=== PATIENT | female | born 1945 | race Caucasian/White ===

== ENCOUNTER 2016-09-11 05:55 | Inpatient (IN) | payer OTHER, MEDICARE ==
[2016-08-28 10:52] VITALS: BMI 31.2
[2016-09-11] MEDS ORDERED: TRANEXAMIC ACID 1000 MG/10 ML VIAL IVPUSH ONE (06:11)
[2016-09-11] MEDS ORDERED: ROPIVICAINE 0.2%/MORPH PF/KETOROLAC - 51ML DISP.SYRINGE IA ONE ×3 (06:11→10:02)
[2016-09-11] MEDS ORDERED: CEFAZOLIN 2 GM in DEXTROSE 5%-WATER - 50 ML IVPB ONE (06:11)
[2016-09-11] MEDS ORDERED: GABAPENTIN 300 MG CAPSULE (FP) ONE (06:41)
[2016-09-11] MEDS ORDERED: oxyCODONE HCL 10 MG SUSTAINED ACTING TABLET ONE (06:41)
[2016-09-11] MEDS ORDERED: CELECOXIB 200 MG CAPSULE ONE (06:41)
[2016-09-11] MEDS: CELECOXIB 200 MG CAPSULE PO ONE (06:45)
[2016-09-11] MEDS: GABAPENTIN 300 MG CAPSULE (FP) PO ONE (06:45)
[2016-09-11] MEDS: oxyCODONE HCL 10 MG SUSTAINED ACTING TABLET PO ONE (06:45)
[2016-09-11] MEDS ORDERED: MIDAZOLAM HCL 2 MG/2 ML SINGLE DOSE VIAL ONE ×2 (06:47→07:55)
[2016-09-11] MEDS ORDERED: SODIUM CHLORIDE 0.9% P/F 10 ML VIAL IJ ONE (06:47)
[2016-09-11] MEDS ORDERED: ROPIVACAINE HCL 0.5% 30ML VIAL ONE (06:47)
[2016-09-11] MEDS ORDERED: DEXAMETHASONE SOD PHOSPHATE/PF 10 MG/ML SDV ONE (06:47)
[2016-09-11] MEDS ORDERED: TRANEXAMIC ACID 1000 MG/10 ML VIAL ONE ×2 (07:25→07:56)
[2016-09-11] MEDS ORDERED: ceFAZolin SODIUM 1 GM VIAL ONE ×2 (07:25→07:56)
[2016-09-11] MEDS ORDERED: VANCOMYCIN 1,000 MG VIAL (RESTRICTED TO ID ONLY) ONE (07:25)
--- NOTE | 2016-09-11 07:30 | HP ---
Admitting History and Physical - Admission Chief Complaint: Right hip osteoarthritis x years History of Present Illness: 71 year old female presents in regard to her right hip. Longstanding osteoarthritis of her right hip. Patient complains of pain, difficulty ambulating and limited ROM. Patient has failed conservative treatment including PO medication, activity modification and exercise program. At this point, patient would like to proceed with a right total hip arthroplasty (MAKOplasty). History Source: Patient - Past Medical History Pulmonary: Yes: Asthma Musculoskeletal: Yes: Osteoarthritis - Past Surgical History Additional Past Surgical History: See written H&P. - Advance Directives Advance Directives: Yes: Health Care Proxy - Smoking History Smoking history: Never smoked Have you smoked in the past 12 months: No - Alcohol/Substance Use Hx Alcohol Use: Yes (RARELY) Home Medications - Allergies Allergies/Adverse Reactions: Allergies Allergy/AdvReac Type Severity Reaction Status Date / Time No Known Allergies Allergy Verified 09/11/16 06:51 - Home Medications Home Medications: Ambulatory Orders Albuterol Sulfate [Proventil HFA Inhaler -] 1 - 2 inh PO PRN PRN 03/22/15 L.acidoph,Paracasei, B.lactis [Probiotic] 1 each PO DAILY 03/22/15 Cholecalciferol (Vitamin D3) [Vitamin D3] 1,000 unit PO DAILY capsule 05/21/15 Sheila Root 550 mg PO DAILY capsule 05/19/16 Vitamin B Complex 1 each PO DAILY capsule 05/19/16 Acetaminophen [Tylenol .Extra-Strength -] 1 tab PO PRN PRN 08/28/16 Cyanocobalamin Vit B-12 Inj. [Vitamin B12 Injection -] 1 dose IM MONTHLY Cyclobenzaprine HCl [Flexeril 10 mg] 1 tab PO PRN PRN 08/28/16 Ibuprofen [Motrin -] 600 mg PO PRN PRN 08/28/16 Oxycodone HCl/Acetaminophen [Percocet 10-325 mg Tablet] 0.5 each PO TID PRN 05/16 Salmeterol/Fluticasone [Advair 250Mcg/50Mcg -] 2 puff PO BID PRN 08/28/16 Carbamazepine [Tegretol] 200 mg PO BID tablet 08/31/16 Cyanocobalamin (Vitamin B-12) [Cyanocobalamin Injection] 1,000 mcg IJ MONTHLY # 1 vial 08/31/16 Guaifenesin [Mucinex] 600 mg PO BID 09/11/16 Review of Systems - Review of Systems Musculoskeletal: reports: Decreased ROM (Right hip), Joint Pain (Right hip) Physical Examination Vital Signs: Vital Signs Temperature 98 F 09/11/16 06:59 Pulse Rate 83 09/11/16 06:59 Respiratory Rate 16 09/11/16 06:59 Blood Pressure 161/80 09/11/16 06:59 O2 Sat by Pulse Oximetry (%) Constitutional: Yes: Well Nourished, No Distress Eyes: Yes: Conjunctiva Clear HENT: Yes: Atraumatic, Normocephalic Neck: Yes: Supple Cardiovascular: Yes: Regular Rate and Rhythm Respiratory: Yes: Regular Gastrointestinal: Yes: Soft ...Rectal Exam: Yes: Deferred Musculoskeletal: Yes: Joint Stiffness (Right hip) Assessment/Plan 71 year old female presenting in regard to her right hip. Patient continues to have pain and limited mobility. Patient has failed all conservative treatment. Proceed with a right total hip arthroplasty (MAKOplasty).
[2016-09-11] MEDS ORDERED: SUCCINYLCHOLINE CHLORIDE 200 MG/10 ML VIAL ONE (07:55)
[2016-09-11] MEDS ORDERED: PROPOFOL 20 ML ONE ×4 (07:55→09:10)
[2016-09-11] MEDS ORDERED: ONDANSETRON 4 MG/2 ML VIAL ONE (11:04)
[2016-09-11] MEDS ORDERED: KETOROLAC TROMETHAMINE 30 MG/1 ML VIAL ONE (11:20)
[2016-09-11] MEDS ORDERED: MAGNESIUM HYDROX 2400MG/30ML ORAL SUSPENSION 30 ML CUP PO PRN (11:20)
[2016-09-11] MEDS ORDERED: ACETAMINOPHEN INJECTION 100 ML IVPB ONE (11:20)
[2016-09-11] MEDS ORDERED: ONDANSETRON 4 MG/2 ML VIAL IVPB PRN (11:20)
[2016-09-11] MEDS ORDERED: MAG HYDROX/AL HYDROX/SIMETH 30 ML UNIT-DOSE CUP PO PRN (11:20)
[2016-09-11] MEDS ORDERED: traMADol HCL 50 MG TABLET ONE (11:21)
[2016-09-11] MEDS: traMADol HCL 50 MG TABLET PO SCH ×3 (11:22→23:30)
[2016-09-11] MEDS: KETOROLAC TROMETHAMINE 30 MG/1 ML VIAL IVPUSH SCH ×2 (11:22→15:30)
[2016-09-11] MEDS ORDERED: [UNRECOGNIZED DRUG - OTHER] PO PRN (11:23)
[2016-09-11] MEDS: ACETAMINOPHEN 1000 MG/100 ML VIAL (NON FORMULARY) IVPB ONE (11:23)
[2016-09-11] MEDS ORDERED: CYCLOBENZAPRINE HCL 10 MG TABLET (FP) PO PRN (11:23)
[2016-09-11] MEDS ORDERED: ALBUTEROL SO4 6.7 GM HFA INHALER IH PRN (11:23)
[2016-09-11] MEDS ORDERED: FLUTICASONE PO PRN (11:23)
[2016-09-11] MEDS ORDERED: SALMETEROL PO PRN (11:23)
[2016-09-11] MEDS ORDERED: LACTATED RINGERS SOLUTION 1,000 ML IV SCH (11:30)
[2016-09-11] MEDS ORDERED: oxyCODONE HCL 5 MG TABLET PO PRN (13:16)
[2016-09-11] MEDS ORDERED: PANTOPRAZOLE 40 MG TABLET (FP) PO ONE (14:00)
[2016-09-11] MEDS: oxyCODONE HCL 5 MG TABLET PO PRN ×2 (14:30→23:00)
--- NOTE | 2016-09-11 16:00 | OP ---
Operative Note - Note: Operative Date: 09/11/16 Pre-Operative Diagnosis: right hip OA Operation: right BERTA / MAKOplasty Post-Operative Diagnosis: Same as Pre-op Surgeon: Jalen Alberts Biomedical Equipment Tech: Bria Beltran Anesthesia: Spinal Estimated Blood Loss (mls): 200 Operative Report Dictated: Yes
[2016-09-11] MEDS: CEFAZOLIN 2 GM/D5W 50 ML IVPB SCH (18:00)
[2016-09-11] MEDS: ACETAMINOPHEN 325 MG TABLET (FP) PO SCH (18:00)
[2016-09-11] MEDS ORDERED: PT OWN MED DRAWER 7, Y5N ONE ×2 (21:03→21:10)
[2016-09-11] MEDS: ASCORBIC ACID 500 MG TABLET (FP) PO SCH (21:10)
[2016-09-11] MEDS: carBAMazepine 200 MG TABLET PO SCH (21:10)
[2016-09-11] MEDS: PANTOPRAZOLE 40 MG TABLET (FP) PO SCH (21:10)
[2016-09-11] MEDS: SENNOSIDES/DOCUSATE COMBO (SENNA PLUS) TABLET (UD) PO SCH (21:11)
[2016-09-11] MEDS: GABAPENTIN 300 MG CAPSULE (FP) PO SCH (21:11)
[2016-09-11] MEDS: oxyCODONE HCL 10 MG SUSTAINED ACTING TABLET PO SCH (21:11)
[2016-09-11] MEDS: BUDESONIDE 0.5 MG/2 ML INH SUSP VIAL NEB SCH (22:01)
[2016-09-12] MEDS: CEFAZOLIN 2 GM/D5W 50 ML IVPB SCH (02:00)
[2016-09-12] MEDS: traMADol HCL 50 MG TABLET PO SCH ×5 (04:59→23:46)
[2016-09-12] MEDS: BUDESONIDE/FORMETEROL FUMARATE 80/4.5 mcg INHALER IH SCH ×3 (04:59→21:48)
[2016-09-12] MEDS: KETOROLAC TROMETHAMINE 30 MG/1 ML VIAL IVPUSH SCH ×2 (05:00→05:01)
[2016-09-12] MEDS: oxyCODONE HCL 5 MG TABLET PO PRN ×3 (06:47→21:49)
[2016-09-12] MEDS: ACETAMINOPHEN 325 MG TABLET (FP) PO SCH ×5 (06:48→23:43)
[2016-09-12] MEDS: MONTELUKAST NA 10 MG TABLET PO SCH (07:00)
[2016-09-12] MEDS: ASPIRIN 325 MG TABLET PO SCH (08:00)
[2016-09-12 08:50] LABS: MCHC 34.2 g/dl (32.0-36.0); MEAN CELL VOLUME 93.8 fl (80-96); MEAN PLT VOLUME 8.9 fl (7.5-11.1); PLATELET COUNT 264 K/MM3 (134-434); RDW 12.9 % (11.6-15.6); WHITE BLOOD COUNT 8.9 K/mm3 (4.0-10.8)
[2016-09-12 08:55] LABS: ANION GAP 7 (8-16); CO2 26 mmol/L (22-28); CREATININE 0.7 mg/dl (0.6-1.3); GLUCOSE,RANDOM 159 mg/dl (74-106)
[2016-09-12 09:13] LABS: COCKROFT - GAULT NT
[2016-09-12] MEDS ORDERED: SODIUM CHLORIDE 500 ML IV STA (09:13)
[2016-09-12] MEDS: oxyCODONE HCL 10 MG SUSTAINED ACTING TABLET PO SCH ×2 (10:00→21:45)
[2016-09-12] MEDS: THEOPHYLLINE ANHYDROUS 200 MG CAP.ER.24H PO SCH (10:00)
[2016-09-12] MEDS: ASCORBIC ACID 500 MG TABLET (FP) PO SCH ×2 (10:00→21:46)
[2016-09-12] MEDS ORDERED: PANTOPRAZOLE 40 MG TABLET (FP) PO SCH (10:00)
[2016-09-12] MEDS: carBAMazepine 200 MG TABLET PO SCH ×2 (10:00→21:47)
[2016-09-12] MEDS: SENNOSIDES/DOCUSATE COMBO (SENNA PLUS) TABLET (UD) PO SCH ×2 (10:00→21:45)
[2016-09-12] MEDS: GABAPENTIN 300 MG CAPSULE (FP) PO SCH ×2 (10:00→21:44)
[2016-09-12] MEDS: CELECOXIB 200 MG CAPSULE PO SCH (10:00)
[2016-09-12] MEDS: MULTIVITAMINS (DAILY MVI) TABLET (FP) PO SCH (10:00)
--- NOTE | 2016-09-12 10:08 | RAPID ---
Physical Examination Vital Signs: Vital Signs Temperature 98.6 F 09/12/16 06:00 Pulse Rate 85 09/12/16 06:00 Respiratory Rate 19 09/12/16 06:00 Blood Pressure 126/58 09/12/16 06:00 O2 Sat by Pulse Oximetry (%) 96 09/12/16 06:19 Findings/Remarks: called to bedside for Rapid Response pt is a 71 y/o female with a past medical history of asthma, hiatal hernia, osteoarthritis. pt is s/p right THR (serena) pod #1 (Aristeo). Constitutional: Yes: Well Nourished, Diaphoresis, Pallor Eyes: Yes: WNL, Conjunctiva Clear, EOM Intact HENT: Yes: WNL, Atraumatic, Normocephalic Neck: Yes: WNL, Supple, Trachea Midline Cardiovascular: Yes: WNL, Regular Rate and Rhythm, S1, S2 Respiratory: Yes: WNL, Regular, CTA Bilaterally Gastrointestinal: Yes: WNL, Normal Bowel Sounds, Soft ...Rectal Exam: Yes: Deferred Renal/: Yes: WNL Musculoskeletal: Yes: Other (right hip dressing noted to lateral hip, CDI, + 3 pedal pulse, less than 3 second capillary refill.) Extremities: Yes: WNL Edema: No Peripheral Pulses WNL: Yes Peripheral Pulses: Left Radial: 4+, Right Radial: 4+, Left Doralis Pedis: 3+, Right Dorsalis Pedis: 3+, Left Femoral: 3+, Right Femoral: 3+ Integumentary: Yes: WNL Wound/Incision: Yes: Dressing Dry and Intact Neurological: Yes: WNL, Alert, Oriented ...Motor Strength: WNL Psychiatric: Yes: WNL, Alert, Oriented Labs: CBC, BMP 09/12/16 07:39 09/12/16 07:39 Rapid Response - Rapid Response Assessment: Rapid Response called by primary RN (Torey) patient was ambulating independently in the hallway with stretcher and RN at her side, patient became diaphoretic and loss consciousness for aproximately 30 seconds. No seizure like activity noted, no incontinence noted. Blood pressure was 53/40 with hr 47, Normal saline bolus initiated 500ml, fingerstick 108, patient regained consciousness, alert, awake, oriented x 3. repeat blood pressure 80/52, pt moved to rm 14, placed on cardiac monitoring, NSR, normal axis, no ectopy noted. repeat blood pressure 108/62. Outcome: brief period of loss of consciousness, regained consciousness with no seizure like activity, pt became normotensive after IV NS bolus Recommendations/Interventions: continue IVF d5NS @125ml/hr x 1 Liter recommend to hold oxycodone dose caution with narcotic pain medication. Primary Physician Notified: Jalen Alberts Time PMD Notified: 09:40 Plan: - close monitioring vital signs q4h - continue IV d5ns @125ml/hr x 1 liter - hold oxycodone dose tonight - caution with narcotic pain medication. Critical Care Total Critical Care Time (in minutes): 45 Critical Care Statement: The care of this patient involved high complexity decision making to prevent further life threatening deterioration of the patient 's condition and/or to evalute & treat vital organ system(s) failure or risk of failure.
[2016-09-12] MEDS: BUDESONIDE 0.5 MG/2 ML INH SUSP VIAL NEB SCH ×2 (10:30→21:46)
[2016-09-12] MEDS ORDERED: DEXTROSE 5%-NORMAL SALINE 1,000 ML IV SCH (10:45)
[2016-09-12] MEDS ORDERED: PT OWN MED DRAWER 7, Y5N ONE ×3 (10:55→22:28)
--- NOTE | 2016-09-12 11:42 | PN ---
Progress Note, Physician Chief Complaint: s/o right total hip TIESHA under spinal anesthesia History of Present Illness: single shot preipheral nerve block for post op pain control - Current Medication List Current Medications: Active Medications Acetaminophen (Tylenol -) 650 mg PO Q6H [facility] Stop: 09/14/16 17:59 Last Admin: 09/12/16 06:48 Dose: 650 mg Al Hydroxide/Mg Hydroxide (Mylanta Oral Suspension -) 30 ml PO Q4H PRN PRN Reason: DYSPEPSIA Albuterol Sulfate (Ventolin Hfa Inhaler -) 2 puff IH Q6H PRN PRN Reason: ASTHMA Ascorbic Acid (Vitamin C -) 500 mg PO BID [facility] Last Admin: 09/12/16 10:00 Dose: 500 mg Aspirin (Asa -) 325 mg PO DAILY@0800 [facility] Last Admin: 09/12/16 08:00 Dose: 325 mg Budesonide (Pulmicort 0.5 Mg Nebulizer -) 0.5 amp NEB BID [facility] Last Admin: 09/11/16 22:01 Dose: 0.5 amp Budesonide/Formoterol Fumarate (Symbicort 80/4.5mcg -) 2 puff IH BID [facility] Last Admin: 09/12/16 10:00 Dose: 2 inhaler Carbamazepine (Tegretol -) 200 mg PO BID [facility] Last Admin: 09/12/16 10:00 Dose: 200 mg Celecoxib (Celebrex -) 200 mg PO DAILY [facility] Last Admin: 09/12/16 10:00 Dose: 200 mg Cyclobenzaprine HCl (Flexeril -) 10 mg PO Q8H PRN PRN Reason: MUSCLE SPASMS Last Admin: 09/12/16 05:45 Dose: 10 mg Fentanyl (Sublimaze Injection -) 50 mcg IVPUSH [id number] PRN PRN Reason: PAIN Stop: 09/14/16 13:17 Gabapentin (Neurontin -) 300 mg PO BID [facility] Stop: 09/14/16 21:59 Last Admin: 09/12/16 10:00 Dose: 300 mg Dextrose/Sodium Chloride (D5-Ns -) 1,000 mls @ 125 mls/hr IV ASDIR [facility] Stop: 09/12/16 18:44 Magnesium Hydroxide (Milk Of Magnesia -) 30 ml PO PRN PRN PRN Reason: CONSTIPATION Montelukast Sodium (Singulair -) 10 mg PO AM [facility] Last Admin: 09/12/16 07:00 Dose: 10 mg Multivitamins/Minerals/Vitamin C (Tab-A-Vit -) 1 tab PO DAILY [facility] Last Admin: 09/12/16 10:00 Dose: 1 tab Ondansetron HCl (Zofran Injection) 4 mg IVPB Q6H PRN PRN Reason: NAUSEA Oxycodone HCl (Oxycontin -) 10 mg PO BID [facility] Stop: 09/14/16 13:16 Last Admin: 09/12/16 10:00 Dose: 10 mg Oxycodone HCl (Roxicodone -) 5 mg PO Q3H PRN PRN Reason: PAIN LEVEL 1-5 Oxycodone HCl (Roxicodone -) 10 mg PO Q3H PRN PRN Reason: PAIN LEVEL 6-10 Last Admin: 09/12/16 06:47 Dose: 10 mg Pantoprazole Sodium (Protonix -) 40 mg PO HS [facility] Last Admin: 09/11/16 21:10 Dose: 40 mg Senna/Docusate Sodium (Pericolace -) 2 tablet PO BID [facility] Last Admin: 09/12/16 10:00 Dose: 2 tablet Theophylline (Anastacio-24) 600 mg PO DAILY [facility] Last Admin: 09/12/16 10:00 Dose: 600 mg Tramadol HCl (Ultram -) 50 mg PO Q6H [facility] Last Admin: 09/12/16 04:59 Dose: 50 mg - Objective Vital Signs: Vital Signs Temperature 98.6 F 09/12/16 06:00 Pulse Rate 85 09/12/16 06:00 Respiratory Rate 19 09/12/16 09:00 Blood Pressure 126/58 09/12/16 06:00 O2 Sat by Pulse Oximetry (%) 96 09/12/16 09:00 Constitutional: Yes: Well Nourished Cardiovascular: Yes: WNL Respiratory: Yes: WNL Gastrointestinal: Yes: WNL Labs: CBC, BMP 09/12/16 07:39 Assessment/Plan Patient had a vagal episode this morning, rapid response called, she now feels fine, says she wants to take fewer pain medication. Otherwise, no anethetic complications. dept of anesthesia will sign off care at this time
[2016-09-12 11:56] LABS: ALK PHOS 85 U/L (32-92); ANION GAP 7 (8-16); BILIRUBIN,TOTAL 0.1 mg/dl (0.2-1.0); CALCIUM 8.7 mg/dl (8.4-10.2); CO2 25 mmol/L (22-28); COCKROFT - GAULT NT; CREATININE 0.6 mg/dl (0.6-1.3); GLUCOSE,RANDOM 136 mg/dl (74-106); MAGNESIUM 1.4 mg/dL (1.8-2.4); PHOSPHOROUS 3.2 mg/dl (2.5-4.6); SGOT/AST 34 U/L (10-42); SGPT/ALT 14 U/L (10-40); TOT PROT 5.1 g/dl (6.4-8.3)
[2016-09-12] MEDS ORDERED: MAGNESIUM SULFATE 2 GM in SODIUM CHLORIDE 100 ML IVPB ONE (12:14)
[2016-09-12] MEDS ORDERED: MAGNESIUM SULF 50% (8.12 MEQ/2 ML-1 GM VIAL) IVPB ONE (12:30)
[2016-09-12] MEDS ORDERED: MAGNESIUM SULF 50% (8.12 MEQ/2 ML-1 GM VIAL) ONE (15:08)
--- NOTE | 2016-09-12 17:16 | EKG ---
Test Reason : Blood Pressure : / mmHG Vent. Rate : 077 BPM Atrial Rate : 077 BPM P-R Int : 156 ms QRS Dur : 090 ms QT Int : 394 ms P-R-T Axes : 051 009 022 degrees QTc Int : 445 ms SINUS RHYTHM WITH MARKED SINUS ARRHYTHMIA INCOMPLETE RIGHT BUNDLE BRANCH BLOCK WHEN COMPARED WITH ECG OF 28-AUG-2016 10:41, NO SIGNIFICANT CHANGE WAS FOUND Confirmed by NAWAF CALI MD ([id number]) on 09/12/2016 5:15:54 PM Referred By: Jalen Alberts Confirmed By:NAWAF CALI MD
--- NOTE | 2016-09-12 20:10 | PN ---
Progress Note (short form) - Note Progress Note: Pt seen and examined. Events noted. Feels better. AVSS Selected Entries 09/12/16 14:09 Temperature 97.5 F L Pulse Rate 89 Respiratory 16 Rate Blood Pressure 135/61 O2 Sat by Pulse 95 Oximetry (%) Laboratory Tests 09/12/16 09/12/16 07:39 07:39 WBC 8.9 D Hgb 11.3 D Hct 33.1 D Plt Count 264 D Sodium 136 Potassium 5.0 Chloride 103 Carbon Dioxide 26 Anion Gap 7 L BUN 19 H D Creatinine 0.7 D Random Glucose 159 H Calcium 9.0 Gen: NAD RLE: c/d/i, NVID A/P 71yo female POD#1 s/p R BERTA 1. PT/OOB - WBAT RLE 2. D/C home tomorrow
[2016-09-12] MEDS: PANTOPRAZOLE 40 MG TABLET (FP) PO SCH (21:45)
[2016-09-13] MEDS: oxyCODONE HCL 5 MG TABLET PO PRN ×2 (01:53→08:51)
[2016-09-13] MEDS: traMADol HCL 50 MG TABLET PO SCH ×2 (05:49→11:49)
[2016-09-13] MEDS: ACETAMINOPHEN 325 MG TABLET (FP) PO SCH ×2 (05:50→11:48)
[2016-09-13 06:27] VITALS: BP 126/63; PULSE 87; TEMP 98.8
[2016-09-13] MEDS: ASPIRIN 325 MG TABLET PO SCH (08:12)
[2016-09-13] MEDS: MONTELUKAST NA 10 MG TABLET PO SCH (08:13)
[2016-09-13] MEDS: CELECOXIB 200 MG CAPSULE PO ONE (08:15)
[2016-09-13] MEDS: oxyCODONE HCL 10 MG SUSTAINED ACTING TABLET PO ONE (08:15)
[2016-09-13] MEDS: GABAPENTIN 300 MG CAPSULE (FP) PO ONE (08:15)
[2016-09-13] MEDS: ACETAMINOPHEN 1000 MG/100 ML VIAL (NON FORMULARY) IVPB ONE (08:15)
[2016-09-13] MEDS: KETOROLAC TROMETHAMINE 30 MG/1 ML VIAL IVPUSH SCH (08:16)
[2016-09-13 08:30] LABS: ALBUMIN 2.8 g/dl (3.5-5.0); ALK PHOS 81 U/L (32-92); ANION GAP 8 (8-16); BILIRUBIN,TOTAL 0.4 mg/dl (0.2-1.0); CALCIUM 8.6 mg/dl (8.4-10.2); CO2 25 mmol/L (22-28); CREATININE 0.5 mg/dl (0.6-1.3); GLUCOSE,RANDOM 139 mg/dl (74-106); SGOT/AST 29 U/L (10-42); SGPT/ALT 12 U/L (10-40)
[2016-09-13 08:34] LABS: MCH 31.9 pg (25.7-33.7); MEAN CELL VOLUME 93.8 fl (80-96); MEAN PLT VOLUME 8.9 fl (7.5-11.1); PLATELET COUNT 251 K/MM3 (134-434); RDW 12.7 % (11.6-15.6); WHITE BLOOD COUNT 9.5 K/mm3 (4.0-10.8)
[2016-09-13] MEDS ORDERED: PT OWN MED DRAWER 7, Y5N ONE (09:06)
--- NOTE | 2016-09-13 09:07 | DS ---
Physical Examination Vital Signs: Vital Signs Temperature 98.8 F 09/13/16 06:11 Pulse Rate 87 09/13/16 06:11 Respiratory Rate 18 09/13/16 06:11 Blood Pressure 126/63 09/13/16 06:11 O2 Sat by Pulse Oximetry (%) 93 L 09/13/16 06:11 Labs: CBC, BMP 09/13/16 07:32 09/13/16 07:32 Discharge Summary Reason For Visit: RIGHT HIP OSTEOARTHRITIS Current Active Problems Osteoarthritis of right hip (Acute) Procedures: Principal: right hip replacement Hospital Course: Admitted for elective surgery. Procedure performed without complications. Pt received postoperative antibiotic prophylaxis and DVT ppx. Ambulated with physical therapy. Stable for discharge home with outpatient followup. Condition: Stable - Instructions Diet, Activity, Other Instructions: Dr Alberts - Hip Replacement Instructions Keep the Aquacel dressing on until removed by Dr. Alberts in 10-14 days - it is antibacterial and waterproof and you can shower with it on. Call the office for a follow-up appointment with Dr. Alberts in 10-14 days. Take one Aspirin 325mg daily for 6 weeks to prevent blood clots in your legs. Take Omeprazole daily for 6 weeks to protect against heartburn and ulcers. Take Celebrex 200mg once daily for 30 days to reduce swelling and inflammation. Take a stool softener daily to prevent constipation. Take a multivitamin and vitamin C supplement daily to aid wound healing. For pain: *Mild pain (1-3/10): Take 1 Tramadol tablet every 4 hours as needed. Moderate pain (4-6/10): Take 1 Tramadol tablet and 1 Percocet tablet every 4 hours as needed. Severe pain (7-10/10): Take 1 Tramadol tablet and 2 Percocet tablets every 4 hours as needed. Activity: You can put as much weight on the operative leg as you want. For the first 6 weeks, all you need to do is walk around the house, go up/down stairs, and sit down/get up. After 6 weeks when everything is healed (and bone has grown into the implant) you will be sent for more intensive outpatient physical therapy. Always use a walker or cane for balance and to prevent falls. Disposition: VNS/HOME HEALTH CARE - Home Medications Comprehensive Discharge Medication List: Ambulatory Orders Albuterol Sulfate [Proventil HFA Inhaler -] 1 - 2 inh PO PRN PRN 03/22/15 L.acidoph,Paracasei, B.lactis [Probiotic] 1 each PO DAILY 03/22/15 Cholecalciferol (Vitamin D3) [Vitamin D3] 1,000 unit PO DAILY capsule 05/21/15 Sheila Root 550 mg PO DAILY capsule 05/19/16 Vitamin B Complex 1 each PO DAILY capsule 05/19/16 Cyanocobalamin Vit B-12 Inj. [Vitamin B12 Injection -] 1 dose IM MONTHLY Cyclobenzaprine HCl [Flexeril 10 mg] 1 tab PO PRN PRN 08/28/16 Salmeterol/Fluticasone [Advair 250Mcg/50Mcg -] 2 puff PO BID PRN 08/28/16 Carbamazepine [Tegretol] 200 mg PO BID tablet 08/31/16 Cyanocobalamin (Vitamin B-12) [Cyanocobalamin Injection] 1,000 mcg IJ MONTHLY # 1 vial 08/31/16 Guaifenesin [Mucinex] 600 mg PO BID 09/11/16 Ascorbic Acid [Vitamin C -] 500 mg PO BID tablet 09/13/16 Aspirin [ASA -] 325 mg PO DAILY@0800 tablet 09/13/16 Celecoxib [CeleBREX -] 200 mg PO DAILY #30 tab 09/13/16 Multivitamins [Multivit ([facility] Formulary)] 1 tab PO DAILY tab 09/13/16 Nystatin Oral Suspension - [Nystatin Oral Susp 903105 Units/5 ML -] 500,000 units PO Q6HPO #28 dose 09/13/16 Oxycodone HCl/Acetaminophen [Percocet 5-325 mg Tablet] 1 tab PO Q4H PRN #60 tablet MDD 8 09/13/16 Sennosides/Docusate Sodium [Pericolace -] 2 tablet PO BID tablet 09/13/16 Tramadol HCl [Ultram -] 50 mg PO Q4H PRN #90 tablet MDD 6 09/13/16
[2016-09-13] MEDS: CELECOXIB 200 MG CAPSULE PO SCH (09:09)
[2016-09-13] MEDS: MULTIVITAMINS (DAILY MVI) TABLET (FP) PO SCH (09:09)
[2016-09-13] MEDS: carBAMazepine 200 MG TABLET PO SCH (09:10)
[2016-09-13] MEDS: THEOPHYLLINE ANHYDROUS 200 MG CAP.ER.24H PO SCH (09:10)
[2016-09-13] MEDS: GABAPENTIN 300 MG CAPSULE (FP) PO SCH (09:10)
[2016-09-13] MEDS: ASCORBIC ACID 500 MG TABLET (FP) PO SCH (09:10)
[2016-09-13] MEDS: oxyCODONE HCL 10 MG SUSTAINED ACTING TABLET PO SCH (09:11)
[2016-09-13] MEDS: SENNOSIDES/DOCUSATE COMBO (SENNA PLUS) TABLET (UD) PO SCH (09:11)
[2016-09-13] MEDS: BUDESONIDE 0.5 MG/2 ML INH SUSP VIAL NEB SCH (09:11)
[2016-09-13] MEDS: BUDESONIDE/FORMETEROL FUMARATE 80/4.5 mcg INHALER IH SCH (09:12)
[2016-09-13] MEDS ORDERED: NYSTATIN 500,000 UNITS/5 ML SUSPENSION PO SCH (12:00)
--- NOTE | 2016-09-13 12:50 | PN ---
Progress Note (short form) - Note Progress Note: Pt seen and examined this AM. No complaints. AVSS Selected Entries 09/13/16 06:11 Temperature 98.8 F Pulse Rate 87 Respiratory 18 Rate Blood Pressure 126/63 O2 Sat by Pulse 93 L Oximetry (%) Oxygen Delivery Room Air Method Laboratory Tests 09/13/16 09/13/16 07:32 07:32 WBC 9.5 Hgb 10.3 L Hct 30.2 L Plt Count 251 Sodium 137 Potassium 4.6 Chloride 104 Carbon Dioxide 25 Anion Gap 8 BUN 10 D Creatinine 0.5 L Random Glucose 139 H Gen: NAD RLE: c/d/i, NVID A/P 71yo female POD#2 s/p R BERTA 1. PT/OOB - WBAT RLE 2. D/C home today
[2016-09-13] MEDS ORDERED: oxyCODONE HCL 10 MG SUSTAINED ACTING TABLET PO ONE (14:00)
--- NOTE | 2016-09-14 16:18 | SPEC ---
DATE OF OPERATION: 09/11/2016 PREOPERATIVE DIAGNOSIS: Right hip osteoarthritis. POSTOPERATIVE DIAGNOSIS: Right hip osteoarthritis. PROCEDURE: Right total hip replacement with MAKOplasty robotic navigation. ATTENDING: Zan Robertson MD RESEARCH ENVIRONMENTAL ENGINEER: FILIPE Pandya ANESTHESIA: Spinal plus sedation. ESTIMATED BLOOD LOSS: 150 mL. COMPLICATIONS: None. SPECIMENS: Resected bone was sent for pathology analysis. DISPOSITION: The patient was transferred to the PACU in stable condition. IMPLANTS USED: Carol Accolade 2 size 8 femoral component, 52-mm Tritanium acetabular component with 25-mm screw, MDM head ball. INDICATIONS: This is a 71-year-old female who presented to the office complaining of severe right hip pain. She was seen and examined by Dr. Robertson and diagnosed with severe right hip osteoarthritis. She had failed nonoperative management with medications and physical therapy and elected to proceed with surgery. She was indicated for a right total hip replacement with MAKOplasty robotic navigation. The risks, benefits and alternatives to the procedure were explained to the patient in great detail and she elected to proceed with the surgery. On the day of surgery, the patient was taken to the operating room and placed on the OR table. Spinal anesthesia was administered by the anesthesiologist. The patient was then positioned in the lateral decubitus position on the table and all bony prominences were padded. An axillary roll was placed. The operative hip was then prepped and draped in the usual sterile fashion and intravenous antibiotics were given for infection prophylaxis. A surgical time-out was then performed with the team, and the patients identity, procedure, side, availability of implants, and the administration of antibiotics was confirmed. An approximately 15cm longitudinal incision was made through the skin centered on the greater trochanter of the hip. This dissection was carried down through the subcutaneous tissues to the deep fascia. This fascia was then incised and a cobra was placed around the inferior femoral neck. Electrocautery was used to reflect the anterior 40% of the gluteus medius and minimus starting at the musculotendinous junction and leaving a cuff for closure. This was reflected to reveal the capsule of the hip joint. An anterior capsulectomy was performed and the femoral head and neck was visualized. Grade 4 changes were noted diffusely throughout the joint. At this point, three small stab incisions were made superior to the main incision along the iliac crest. Three self-drilling Alem pins were then placed and the Ronaldo pelvic array was attached. Reference points on the limb were then entered into the robotic device and the limb length deficiency, offset, and femoral neck resection level were then calculated by the software. The hip was then dislocated with traction and external rotation, an oscillating saw was used to make the femoral neck cut at the level previously templated, and the femoral head was removed. Attention was then turned to the acetabulum. Retractors were then placed around the acetabulum and the labrum was removed. An acetabular checkpoint pin and the RawFlow software was used to register the contours of the acetabulum. The acetabulum was then reamed in a single stage to the preoperatively templated size using the RawFlow robotic arm. The appropriately sized cup was then impacted and had solid fixation as well as the preset inclination and version of 40 and 20 degrees, respectively. A polyethylene liner was then placed in the cup. Attention was then turned back to the femur, which was externally rotated for improved visualization. A femoral neck elevator was used to present the femoral neck cut, a box osteotome was used to enter the femoral canal, and a canal finder was used to go down the femoral shaft. The Ronaldo broaches were used sequentially until the optimal scratch fit was achieved. This correlated to the preoperatively templated size. From here, several different offset head and neck configurations were tested until excellent stability and length was obtained. These measurements were quantified using the RawFlow software. All trial components were then removed, the femur was copiously irrigated, and the final components were placed. Leg length and stability were checked again and found to be excellent. Irrigation was performed again. Wound closure was started by repairing the abductor muscles with a No. 2 Fiberwire stitch in a [place] configuration passed through bone tunnels in the greater trochanter and tied over a bony bridge. This repair was then reinforced with a 0 VLoc 180 barbed suture. Next, No. 1 Polysorb and 0 VLoc 180 was used to close the fascia. The deep subcutaneous tissue was closed with No. 1 Polysorb sutures, and 2-0 Polysorb was used for the superficial subcutaneous tissue. The skin was closed using both 3-0 VLoc 90 suture in a running subcuticular fashion and SwiftSet skin adhesive. The Ronaldo array and pins were removed from the iliac crest and the stab incision sites were irrigated and closed with 4-0 Polysorb sutures and SwiftSet skin adhesive. Once this was completed a sterile dressing was applied. The patient was then awakened and taken to the PACU in stable condition. ZAN ROBERTSON M.D. WILLI/[id number]
--- NOTE | 2016-09-20 11:18 | PATH ---
Surgical Pathology Report Patient Name: MAMIE ROBIN Med. Rec. #: [id number] /Age/Gender: 1945 (Age: 71) / F Account: [id number] Location: [facility] Taken: 09/11/2016 Received: 09/11/2016 Reported: 09/14/2016 Physicians: Jalen Alberts M.D. Specimen(s) Received RIGHT FEMORAL HEAD Clinical History Right hip osteoarthritis Final Diagnosis FEMORAL HEAD, RIGHT, TOTAL HIP REPLACEMENT: DEGENERATIVE JOINT DISEASE. Electronically Signed Yelena Shoemaker M.D. Gross Description Received in formalin, labeled "right femoral head," is a 4.2 x 4.2 x 4.0 cm. femoral head with a 1.2 cm in length portion of femoral neck attached. The margin of resection is smooth. There is a 2.2 cm in greatest dimension area of eburnation present. The remaining articular surface is dupree-yellow and diffusely granular. The underlying trabecular bone is yellow and hard. Also received within the same container is a 4.5 x 4.0 x 0.4 cm aggregate of dupree bone shavings. A personal banking representative section is submitted in one cassette, following decalcification. 09/12/201609/12/2016
== END 2016-09-13 14:29 | disposition home health service (06) | DRG 470 ==
LOC: FM/S 05:55
PROVIDERS: ADMIT Student in an Organized Health Care Education/Training Program; ATTEND Student in an Organized Health Care Education/Training Program
PROC: 8E0W0CZ Robotic Assisted Procedure of Trunk Region, Open Approach (ICD-10-PCS; 2016-09-11)
PROC: 0SR90JZ Replacement of Right Hip Joint with Synthetic Substitute, Open Approach (ICD-10-PCS; principal; 2016-09-11 08:00)
DX: M16.11 Unilateral primary osteoarthritis, right hip (principal); J45.909 Unspecified asthma, uncomplicated; K44.9 Diaphragmatic hernia without obstruction or gangrene
CPT/HCPCS: 36415; 73502-TC-RT; 80048; 80053; 83735; 84100; 85027; 88304-TC; 88311-TC; 93005; 94010; 94640; 94760; 97116-GP; 97162-PG

== ENCOUNTER 2018-03-27 07:21 | Day surgery (SDC) | payer OTHER, MEDICARE ==
[2018-03-18 12:34] VITALS: BMI 30.3
[2018-03-27] MEDS ORDERED: BSS (NA/CA/MG/K) BALANCED SALT SOLUTION OPHTH SOLN 15 ML BOTTLE ONE (07:25)
[2018-03-27] MEDS ORDERED: LIDOCAINE 1% P/F 10 MG/ML VIAL ONE (07:25)
[2018-03-27] MEDS ORDERED: TETRACAINE 0.5% OPHTH SOLN 2 ML BOTTLE ONE (07:25)
[2018-03-27] MEDS ORDERED: CARBACHOL 0.01% INTRA-OCULAR 1.5 ML VIAL ONE (07:26)
[2018-03-27] MEDS ORDERED: NEO/POLYMYX B SULF/DEXAMETH OPHTHALMIC 5ML BOTTLE ONE (07:26)
[2018-03-27] MEDS: CYCLOPENTOLATE 2% OPHTH SOLN 2 ML BOTTLE ONE ×3 (08:00→08:10)
[2018-03-27] MEDS: TROPICAMIDE 1% OPHTH SOLN 15 ML BOTTLE ONE ×3 (08:00→08:10)
[2018-03-27] MEDS: CIPROFLOXACIN 0.3% EYE DROPS 5 ML BOTTLE ONE ×3 (08:00→08:10)
[2018-03-27] MEDS: PHENYLEPHRINE 2.5% OPHTH SOLN 15 ML BOTTLE ONE ×3 (08:00→08:10)
[2018-03-27] MEDS ORDERED: MIDAZOLAM HCL 2 MG/2 ML SINGLE DOSE VIAL ONE ×2 (09:28→09:35)
[2018-03-27 10:28] VITALS: BP 136/89; PULSE 88; TEMP 98.1
--- NOTE | 2018-03-27 10:59 | OP ---
DATE OF OPERATION: 03/27/2018 OPERATIVE PROCEDURE: Lens Phacoemulsification with Posterior Chamber Intraocular Lens Placement Left Eye PREOPERATIVE DIAGNOSIS: Visually Significant Cataract of Left Eye POSTOPERATIVE DIAGNOSIS: Visually Significant Cataract of Left Eye SURGEON: Michele Richardson M.D. ANESTHESIA: MAC PROCEDURE: The patient was brought to the operating room and placed under monitored anesthesia care by Anesthesia. A drop of Tetracaine was then placed over the left eye. The patient was then prepped and draped in the usual sterile manner. A speculum was then placed over the left eye. The eye was then well irrigated with copious amounts of BSS (balanced salt solution). The operating microscope was then moved into position. A paracentesis was performed using a 15 degree blade. At this point 0.5 mL of 1% preservative-free lidocaine was injected into the anterior chamber. Amvisc plus was then injected into the anterior chamber. A clear corneal incision was then formed using a 2.2 mm keratome. A capsulorrhexis was then performed in a continuous circular fashion beginning with a cystotome, completed with an Utratas forceps. Hydrodissection was then performed using BSS on a cannula. The phaco probe was then introduced through the corneal wound and the cataract was removed using the phaco chop technique. Approximately 3 seconds of absolute phaco time was used. The remaining cortex was then removed using irrigation and aspiration with an I/A probe. The capsule was then filled with regular Amvisc and the capsule was noted to be intact. A previously selected foldable posterior chamber intraocular lens was then injected into the capsule through the corneal wound using a lens injector. It was then dialed into position using a [place]inskey hook. The Amvisc was then removed using irrigation and aspiration. Miostat was then injected through the paracentesis to constrict the pupil. The paracentesis and corneal wound were then hydrated and noted to be water tight. A drop of Maxitrol was then placed over the eye. The speculum was removed and clear shield was taped over the eye. The patient tolerated the procedure well and there were no surgical complications. The patient was asked to follow up in my office the next day. MICHELE RICHARDSON M.D. DEBORAH/[id number]
== END 2018-03-27 10:30 | disposition home or self-care (01) ==
LOC: FASU 07:21
PROVIDERS: ATTEND Ophthalmology
PROC: 08RK3JZ Replacement of Left Lens with Synthetic Substitute, Percutaneous Approach (ICD-10-PCS; principal; 2018-03-27 09:39)
DX: H26.8 Other specified cataract (principal)

== ENCOUNTER 2018-04-17 06:03 | Day surgery (SDC) | payer OTHER, MEDICARE ==
[2018-04-09 12:22] VITALS: BMI 30.3
[2018-04-17] MEDS: PHENYLEPHRINE 2.5% OPHTH SOLN 15 ML BOTTLE ONE ×3 (06:55→07:05)
[2018-04-17] MEDS: CIPROFLOXACIN 0.3% EYE DROPS 5 ML BOTTLE ONE ×3 (06:55→07:05)
[2018-04-17] MEDS: CYCLOPENTOLATE 2% OPHTH SOLN 2 ML BOTTLE ONE ×3 (06:55→07:05)
[2018-04-17] MEDS: TROPICAMIDE 1% OPHTH SOLN 15 ML BOTTLE ONE ×3 (06:55→07:05)
[2018-04-17] MEDS ORDERED: LIDOCAINE 1% P/F 10 MG/ML VIAL ONE (07:10)
[2018-04-17] MEDS ORDERED: CARBACHOL 0.01% INTRA-OCULAR 1.5 ML VIAL ONE (07:11)
[2018-04-17] MEDS ORDERED: TETRACAINE 0.5% OPHTH SOLN 2 ML BOTTLE ONE (07:11)
[2018-04-17] MEDS ORDERED: BSS (NA/CA/MG/K) BALANCED SALT SOLUTION OPHTH SOLN 15 ML BOTTLE ONE (07:11)
[2018-04-17] MEDS ORDERED: EPINEPHrine 1:1,000 1 MG/1 ML - 30ML VIAL (INJECTION) ONE (07:11)
[2018-04-17] MEDS ORDERED: NEO/POLYMYX B SULF/DEXAMETH OPHTHALMIC 5ML BOTTLE ONE (07:11)
[2018-04-17] MEDS ORDERED: ONDANSETRON 4 MG/2 ML VIAL ONE (07:27)
[2018-04-17] MEDS ORDERED: MIDAZOLAM HCL 2 MG/2 ML SINGLE DOSE VIAL ONE ×2 (07:27→07:50)
[2018-04-17 08:19] VITALS: TEMP 98.1
[2018-04-17 08:46] VITALS: BP 120/61; PULSE 87
--- NOTE | 2018-04-17 09:17 | OP ---
DATE OF OPERATION: 04/17/2018 OPERATIVE PROCEDURE: Lens Phacoemulsification with Posterior Chamber Intraocular Lens Placement, Right Eye PREOPERATIVE DIAGNOSIS: Visually Significant Cataract of Right Eye POSTOPERATIVE DIAGNOSIS: Visually Significant Cataract of Right Eye SURGEON: Michele Richardson M.D. ANESTHESIA: MAC PROCEDURE: The patient was brought to the operating room and placed under monitored anesthesia care by Anesthesia. A drop of Tetracaine was then placed over the right eye. The patient was then prepped and draped in the usual sterile manner. A speculum was then placed over the right eye. The eye was then well irrigated with copious amounts of BSS (balanced salt solution). The operating microscope was then moved into position. A paracentesis was performed using a 15 degree blade. At this point 0.5 mL of 1% preservative free-lidocaine was injected into the anterior chamber. Amvisc plus was then injected into the anterior chamber. A clear corneal incision was then formed using a 2.2 mm keratome. A capsulorrhexis was then performed in a continuous circular fashion beginning with a cystotome completed with an Utratas forceps. Hydrodissection was then performed using BSS on a cannula. The phaco probe was then introduced through the corneal wound and the cataract was removed using the phaco chop technique. Approximately 3 seconds of absolute phaco time was used. The remaining cortex was then removed using irrigation and aspiration with an I/A probe. The capsule was then filled with regular Amvisc and the capsule was noted to be intact. A previously selected foldable posterior chamber intraocular lens was then injected into the capsule through the corneal wound using a lens injector. It was then dialed into position using a Sinskey hook. The Amvisc was then removed using irrigation and aspiration. Miostat was then injected through the paracentesis to constrict the pupil. The paracentesis and corneal wound were then hydrated and noted to be water tight. A drop of Maxitrol was then placed over the eye. The speculum was removed and clear shield was taped over the eye. The patient tolerated the procedure well and there were no surgical complications. The patient was asked to follow up in my office the next day. MICHELE RICHARDSON M.D. [id number]
== END 2018-04-17 08:40 | disposition home or self-care (01) ==
LOC: FASU 06:03
PROVIDERS: ATTEND Ophthalmology
PROC: 08RJ3JZ Replacement of Right Lens with Synthetic Substitute, Percutaneous Approach (ICD-10-PCS; principal; 2018-04-17 07:50)
DX: H26.8 Other specified cataract (principal)

== ENCOUNTER 2020-05-09 12:27 | Emergency (ER) | payer OTHER, MEDICARE ==
[2020-05-09] MEDS ORDERED: ACETAMINOPHEN 500 MG TABLET (FP) PO ONE (12:48)
[2020-05-09 13:19] VITALS: BP 148/86; PULSE 88; TEMP 98.6; BMI 30.7
== END 2020-05-09 13:58 | disposition home or self-care (01) ==
LOC: FER 12:27
DX: S09.90XA Unspecified injury of head, initial encounter (principal)
CPT/HCPCS: 70450-TC; 70486-TC; 99284-25

== ENCOUNTER 2021-05-14 10:21 | Inpatient (IN) | payer OTHER, MEDICARE ==
[2021-05-14] MEDS ORDERED: methylPREDNISolone NA SUCC 125 MG/2 ML VIAL IVPUSH ONE (10:44)
[2021-05-14] MEDS ORDERED: methylPREDNISolone NA SUCC 125 MG/2 ML VIAL ONE (10:58)
[2021-05-14] MEDS ORDERED: ALBUTEROL SO4 2.5/IPRATROPIUM 0.5 INH SOL 3 ML VIAL.NEB. NEB ONE ×2 (10:58→16:18)
[2021-05-14] MEDS: ALBUTEROL SO4 2.5/IPRATROPIUM 0.5 INH SOL 3 ML VIAL.NEB. NEB PRN ×2 (11:00→11:15)
[2021-05-14 11:31] LABS: ALBUMIN 3.8 g/dl (3.4-5.0); BILIRUBIN,TOTAL 0.5 mg/dl (0.2-1); CALCIUM 9.2 mg/dl (8.5-10); CREATININE 0.5 mg/dl (0.55-1.3); MAGNESIUM 1.7 mg/dL (1.8-2.4); TOT PROT 5.9 g/dl (6.4-8.2)
[2021-05-14 12:01] LABS: BASO % 0.8 % (0-2.0); EOS % 8.3 % (0-4.5); HEMATOCRIT 38.9 % (32.4-45.2); LYMPH % 22.5 % (8-40); MCH 31.7 pg (25.7-33.7); MCHC 33.5 g/dl (32.0-36.0); MEAN CELL VOLUME 94.7 fl (80-96); MEAN PLT VOLUME 8.2 fl (7.5-11.1); MONO % 9.5 % (3.8-10.2); NEUT % 58.9 % (42.8-82.8); PLATELET COUNT 344 10^3/uL (134-434); RDW 13.8 % (11.6-15.6); WHITE BLOOD COUNT 7.4 K/mm3 (4.0-10.0)
[2021-05-14] MEDS ORDERED: ACETAMINOPHEN 325 MG TABLET (FP) PO ONE (14:48)
[2021-05-14] MEDS ORDERED: ACETAMINOPHEN 325 MG TABLET (FP) ONE (15:18)
[2021-05-14 17:13] VITALS: BMI 29.1
[2021-05-14] MEDS ORDERED: ALBUTEROL SO4 HFA INHALER IH PRN (20:37)
[2021-05-14] MEDS: carBAMazepine XR 400 MG TAB.ER.12H PO SCH (21:19)
[2021-05-14] MEDS: PANTOPRAZOLE 40 MG TABLET PO SCH (21:19)
[2021-05-14] MEDS: ATORVASTATIN CA 10 MG TABLET (FP) PO SCH (21:19)
[2021-05-14] MEDS: MONTELUKAST NA 10 MG TABLET PO SCH (21:19)
[2021-05-14] MEDS ORDERED: guaiFENesin 200 MG/10 ML 10 ML UNIT-DOSE CUPS PO PRN (23:44)
[2021-05-14] MEDS ORDERED: MELATONIN 5 MG TABLETS PO PRN (23:44)
[2021-05-15] MEDS: ALBUTEROL SO4 2.5/IPRATROPIUM 0.5 INH SOL 3 ML VIAL.NEB. NEB PRN ×3 (02:43→12:06)
[2021-05-15] MEDS: methylPREDNISolone NA SUCC 40 MG/1 ML VIAL IVPUSH SCH ×3 (02:57→18:04)
[2021-05-15 08:24] LABS: CALCIUM 9.3 mg/dl (8.5-10); CREATININE 0.7 mg/dl (0.55-1.3)
[2021-05-15] MEDS ORDERED: THEOPHYLLINE ANHYDROUS PO SCH (10:00)
[2021-05-15] MEDS ORDERED: PATIENT'S OWN MEDICATION (NON-FORMULARY) (Salmeterol/Fluticasone [Advair 250mcg/50mcg -] 1 PO PRN (10:02)
[2021-05-15] MEDS ORDERED: THEOPHYLLINE ANHYDROUS 400 MG PO SCH (10:04)
[2021-05-15] MEDS: ENOXAPARIN NA (PORCINE) 40 MG/0.4 ML DISP.SYRIN SQ SCH (10:11)
[2021-05-15] MEDS ORDERED: [UNRECOGNIZED DRUG - OTHER] PO SCH (10:15)
[2021-05-15] MEDS ORDERED: FLUTICASONE PO SCH (10:15)
[2021-05-15] MEDS ORDERED: SALMETEROL PO SCH (10:15)
[2021-05-15] MEDS: carBAMazepine XR 400 MG TAB.ER.12H PO SCH ×2 (10:17→21:19)
[2021-05-15 11:11] LABS: HEMATOCRIT 37.4 % (32.4-45.2); MCH 31.1 pg (25.7-33.7); MCHC 32.2 g/dl (32.0-36.0); MEAN CELL VOLUME 96.8 fl (80-96); MEAN PLT VOLUME 8.8 fl (7.5-11.1); PLATELET COUNT 335 10^3/uL (134-434); RBC 3.86 M/mm3 (3.60-5.2); RDW 14.1 % (11.6-15.6); WHITE BLOOD COUNT 9.2 K/mm3 (4.0-10.0)
[2021-05-15] MEDS: INSULIN SLIDING SCALE (NOVOLOG) 1 VIAL SQ SCH ×2 (12:08→16:47)
[2021-05-15 12:12] LABS: ANISOCYTOSIS 1+; MACROCYTOSIS 1+; PLATELET ESTIMATE NORMAL
[2021-05-15] MEDS ORDERED: ALBUTEROL SO4 0.083% IH SOL 2.5 MG/3 ML VIAL.NEB. NEB PRN (12:27)
[2021-05-15] MEDS: VITAMIN B COMPLEX W/C COMBO TABLET (FP) PO SCH (15:17)
[2021-05-15] MEDS: BUDESONIDE/FORMETEROL FUMARATE 160/4.5 mcg INHALER IH SCH ×2 (15:23→21:16)
[2021-05-15] MEDS: ALBUTEROL SO4 2.5/IPRATROPIUM 0.5 INH SOL 3 ML VIAL.NEB. NEB SCH ×2 (16:47→20:36)
[2021-05-15] MEDS: PANTOPRAZOLE 40 MG TABLET PO SCH (21:16)
[2021-05-15] MEDS: MONTELUKAST NA 10 MG TABLET PO SCH (21:16)
[2021-05-15] MEDS: ATORVASTATIN CA 10 MG TABLET (FP) PO SCH (21:16)
[2021-05-16] MEDS: methylPREDNISolone NA SUCC 40 MG/1 ML VIAL IVPUSH SCH ×2 (01:24→10:05)
[2021-05-16] MEDS: INSULIN SLIDING SCALE (NOVOLOG) 1 VIAL SQ SCH ×2 (07:24→15:23)
[2021-05-16] MEDS: carBAMazepine XR 400 MG TAB.ER.12H PO SCH (10:04)
[2021-05-16] MEDS: VITAMIN B COMPLEX W/C COMBO TABLET (FP) PO SCH (10:05)
[2021-05-16] MEDS: ENOXAPARIN NA (PORCINE) 40 MG/0.4 ML DISP.SYRIN SQ SCH (10:05)
[2021-05-16] MEDS: BUDESONIDE/FORMETEROL FUMARATE 160/4.5 mcg INHALER IH SCH (10:06)
[2021-05-16 10:22] VITALS: BP 142/77; PULSE 73; TEMP 98.4
[2021-05-16] MEDS: ALBUTEROL SO4 2.5/IPRATROPIUM 0.5 INH SOL 3 ML VIAL.NEB. NEB SCH ×2 (15:23→15:24)
== END 2021-05-16 11:30 | disposition home or self-care (01) | DRG 203 ==
LOC: FER 10:21 → FM/S 12:53
PROVIDERS: ATTEND Nurse Practitioner Acute Care
DX: J45.901 Unspecified asthma with (acute) exacerbation (principal); K21.9 Gastro-esophageal reflux disease without esophagitis; G62.9 Polyneuropathy, unspecified; U09.9 Post COVID-19 condition, unspecified; R73.9 Hyperglycemia, unspecified; E78.5 Hyperlipidemia, unspecified; K44.9 Diaphragmatic hernia without obstruction or gangrene
CPT/HCPCS: 36415; 71046-TC-FY; 80048; 80053; 80156; 80198; 82962; 83735; 85025; 93005; 94640; 99285-25; C9803; U0003; U0005

== ENCOUNTER 2022-01-20 07:36 | Emergency (ER) | payer OTHER, MEDICARE ==
[2022-01-20 08:12] VITALS: BP 164/91; PULSE 101; RESP 20; TEMP 98.2; BMI 29.9
[2022-01-20 09:06] LABS: HEMATOCRIT 41.3 % (32.4-45.2); HEMOGLOBIN 14.5 G/dL (10.7-15.3); MCH 33.9 pg (25.7-33.7); MCHC 35.2 g/dl (32.0-36.0); MEAN CELL VOLUME 96.5 fl (80-96); MEAN PLT VOLUME 8.6 fl (7.5-11.1); PLATELET COUNT 329.2 10^3/uL (134-434); RBC 4.28 10^6/uL (3.60-5.2); RDW 13.8 % (11.6-15.6); WHITE BLOOD COUNT 7.5 10^3/uL (4.0-10.8)
[2022-01-20 09:26] LABS: ALBUMIN 3.9 g/dl (3.4-5.0); BILIRUBIN,TOTAL 0.4 mg/dl (0.2-1); CALCIUM 9.4 mg/dl (8.5-10); CREATININE 0.5 mg/dl (0.55-1.3); TOT PROT 6.6 g/dl (6.4-8.2)
[2022-01-20] MEDS ORDERED: ACETAMINOPHEN WITH CODEINE 300MG/30MG TABLET ONE (12:12)
[2022-01-20] MEDS ORDERED: ACETAMINOPHEN WITH CODEINE 300MG/30MG TABLET PO ONE (12:16)
== END 2022-01-20 12:21 | disposition home or self-care (01) ==
LOC: FER 07:36
DX: R22.0 Localized swelling, mass and lump, head (principal)
CPT/HCPCS: 36415; 70492-TC; 80053; 85027; 99284-25; C1887; Q9967

== ENCOUNTER 2022-04-30 11:43 | Inpatient (IN) | payer OTHER, MEDICARE ==
[2022-04-30 12:04] VITALS: BMI 26.5
[2022-04-30] MEDS ORDERED: ALBUTEROL SO4 0.042% IH SOL 1.25 MG/3 ML VIAL.NEB NEB ONE (12:32)
[2022-04-30] MEDS ORDERED: ALBUTEROL SO4 0.083% IH SOL 2.5 MG/3 ML VIAL.NEB. NEB ONE (12:39)
[2022-04-30 13:13] LABS: HEMATOCRIT 40.5 % (32.4-45.2); HEMOGLOBIN 13.9 G/dL (10.7-15.3); MCH 33.1 pg (25.7-33.7); MCHC 34.4 g/dl (32.0-36.0); MEAN CELL VOLUME 96.1 fl (80-96); PLATELET COUNT 373.6 10^3/uL (134-434); RBC 4.21 10^6/uL (3.60-5.2); RDW 14.1 % (11.6-15.6); WHITE BLOOD COUNT 12.5 10^3/uL (4.0-10.8)
[2022-04-30 13:29] LABS: INR 1.12 (0.83-1.09); PROTHROMBIN TIME (PATIENT) 12.9 SEC (9.7-13.0)
[2022-04-30 13:40] LABS: ALBUMIN 3.9 g/dl (3.4-5.0); BILIRUBIN,TOTAL 0.5 mg/dl (0.2-1); CALCIUM 9.3 mg/dl (8.5-10); CREATININE 0.5 mg/dl (0.55-1.3); TOT PROT 6.3 g/dl (6.4-8.2)
[2022-04-30] MEDS ORDERED: guaiFENesin/D-METHORPHAN HB 10 ML UNIT-DOSE CUPS ONE (13:57)
[2022-04-30 14:19] LABS: PLATELET ESTIMATE ADEQUATE
[2022-04-30] MEDS ORDERED: CEFTRIAXONE 1,000 MG in DEXTROSE 5%-WATER - 50 ML IVPB ONE (14:39)
[2022-04-30] MEDS ORDERED: methylPREDNISolone NA SUCC 125 MG/2 ML VIAL IVPUSH ONE (14:39)
[2022-04-30] MEDS ORDERED: AZITHROMYCIN IVPB 500 MG in DEXTROSE 5%-WATER - 250 ML IVPB ONE (14:39)
[2022-04-30] MEDS ORDERED: methylPREDNISolone NA SUCC 125 MG/2 ML VIAL ONE (14:41)
[2022-04-30] MEDS ORDERED: cefTRIAXone SODIUM 1 GM VIAL ONE (14:41)
[2022-04-30] MEDS ORDERED: AZITHROMYCIN 500 MG TABLET ONE (14:42)
[2022-04-30 17:19] LABS: N-TERMINAL BNP 209.2 pg/ml (5-450)
[2022-04-30] MEDS: ALBUTEROL SO4 2.5/IPRATROPIUM 0.5 INH SOL 3 ML VIAL.NEB. NEB SCH ×2 (19:19→21:05)
[2022-04-30] MEDS: methylPREDNISolone NA SUCC 125 MG/2 ML VIAL IVPUSH SCH (20:51)
[2022-04-30] MEDS ORDERED: ACETAMINOPHEN 325 MG TABLET (FP) PO PRN (21:16)
[2022-04-30] MEDS: MONTELUKAST NA 10 MG TABLET PO SCH (22:45)
[2022-04-30] MEDS: ATORVASTATIN CA 10 MG TABLET (FP) PO SCH (22:45)
[2022-04-30] MEDS: guaiFENesin 200 MG/10 ML 10 ML UNIT-DOSE CUPS PO PRN (22:45)
[2022-04-30] MEDS: carBAMazepine XR 400 MG TAB.ER.12H PO SCH ×2 (22:46→23:04)
[2022-05-01] MEDS: methylPREDNISolone NA SUCC 125 MG/2 ML VIAL IVPUSH SCH ×3 (00:57→11:15)
[2022-05-01] MEDS: guaiFENesin 200 MG/10 ML 10 ML UNIT-DOSE CUPS PO PRN ×3 (06:36→22:26)
[2022-05-01] MEDS: ALBUTEROL SO4 2.5/IPRATROPIUM 0.5 INH SOL 3 ML VIAL.NEB. NEB SCH ×4 (08:48→22:13)
[2022-05-01 09:35] LABS: CALCIUM 9.7 mg/dl (8.5-10); CREATININE 0.5 mg/dl (0.55-1.3)
[2022-05-01] MEDS ORDERED: BUDESONIDE 0.5 MG/2 ML INH SUSP VIAL NEB SCH ×2 (09:45→10:00)
[2022-05-01] MEDS: VITAMIN B COMPLEX W/C COMBO TABLET (FP) PO SCH (09:49)
[2022-05-01] MEDS: CEFTRIAXONE 1 GM in DEXTROSE 5%-WATER - 50 ML IVPB SCH (09:52)
[2022-05-01] MEDS: CHOLECALCIFEROL (VIT D3) 1,000 UNIT (25 MCG) TABLET PO SCH (09:52)
[2022-05-01] MEDS: HEPARIN NA (PORCINE) 5,000 UNITS/ML 1ML VIAL SQ SCH ×2 (09:53→22:14)
[2022-05-01] MEDS ORDERED: AZITHROMYCIN IVPB 500 MG/250 ML BAG IVPB SCH (10:00)
[2022-05-01] MEDS ORDERED: FLUTICASONE/UMECLIDIN/VILANTER(200-62.5-25 TRELEGY ELLIPTA) INAHLER IH SCH ×2 (10:00)
[2022-05-01] MEDS: PANTOPRAZOLE 40 MG TABLET PO SCH (10:09)
[2022-05-01] MEDS: carBAMazepine XR 400 MG TAB.ER.12H PO SCH ×2 (10:26→22:26)
[2022-05-01 11:13] LABS: BASO % 0.2 % (0-2.0); HEMATOCRIT 41.3 % (32.4-45.2); HEMOGLOBIN 13.5 GM/dL (10.7-15.3); LYMPH % 8.3 % (8-40); MCH 31.3 pg (25.7-33.7); MCHC 32.6 g/dl (32.0-36.0); MEAN CELL VOLUME 95.8 fl (80-96); MEAN PLT VOLUME 8.9 fl (7.5-11.1); MONO % 2.8 % (3.8-10.2); NEUT % 88.7 % (42.8-82.8); PLATELET COUNT 391 10^3/uL (134-434); RBC 4.31 M/mm3 (3.60-5.2); RDW 13.8 % (11.6-15.6); WHITE BLOOD COUNT 9.6 K/mm3 (4.0-10.0)
[2022-05-01] MEDS: FLUTICASONE/UMECLIDIN/VILANTER(100-62.5-25 TRELEGY ELLIPTA) INAHLER IH SCH (17:11)
[2022-05-01] MEDS: methylPREDNISolone NA SUCC 40 MG/1 ML VIAL IVPUSH SCH (18:05)
[2022-05-01] MEDS: ATORVASTATIN CA 10 MG TABLET (FP) PO SCH (22:13)
[2022-05-01] MEDS: MONTELUKAST NA 10 MG TABLET PO SCH (22:13)
[2022-05-02] MEDS: methylPREDNISolone NA SUCC 40 MG/1 ML VIAL IVPUSH SCH ×3 (01:02→18:11)
[2022-05-02] MEDS: guaiFENesin 200 MG/10 ML 10 ML UNIT-DOSE CUPS PO PRN ×2 (04:18→15:52)
[2022-05-02] MEDS: ALBUTEROL SO4 2.5/IPRATROPIUM 0.5 INH SOL 3 ML VIAL.NEB. NEB SCH ×4 (07:46→21:13)
[2022-05-02] MEDS: CEFTRIAXONE 1 GM in DEXTROSE 5%-WATER - 50 ML IVPB SCH (09:33)
[2022-05-02] MEDS: HEPARIN NA (PORCINE) 5,000 UNITS/ML 1ML VIAL SQ SCH ×2 (09:38→21:14)
[2022-05-02] MEDS: VITAMIN B COMPLEX W/C COMBO TABLET (FP) PO SCH (09:42)
[2022-05-02] MEDS: PANTOPRAZOLE 40 MG TABLET PO SCH (09:42)
[2022-05-02] MEDS: CHOLECALCIFEROL (VIT D3) 1,000 UNIT (25 MCG) TABLET PO SCH (09:43)
[2022-05-02] MEDS: carBAMazepine XR 200 MG TAB.ER.12H PO SCH ×2 (11:34→21:15)
[2022-05-02] MEDS: FLUTICASONE/UMECLIDIN/VILANTER(100-62.5-25 TRELEGY ELLIPTA) INAHLER IH SCH (11:34)
[2022-05-02] MEDS: ALBUTEROL SO4 0.083% IH SOL 2.5 MG/3 ML VIAL.NEB. NEB PRN (18:11)
[2022-05-02] MEDS: FLUTICASONE PROP 0.05% 16 GM NASAL SPRAY NS SCH (21:12)
[2022-05-02] MEDS: MONTELUKAST NA 10 MG TABLET PO SCH (21:15)
[2022-05-02] MEDS: ATORVASTATIN CA 10 MG TABLET (FP) PO SCH (21:15)
[2022-05-02] MEDS: guaiFENesin/CODEINE 10 ML UNIT-DOSE CUPS PO PRN (21:22)
[2022-05-03] MEDS: methylPREDNISolone NA SUCC 40 MG/1 ML VIAL IVPUSH SCH ×3 (01:20→18:47)
[2022-05-03] MEDS: ALBUTEROL SO4 0.083% IH SOL 2.5 MG/3 ML VIAL.NEB. NEB PRN ×2 (01:20→22:45)
[2022-05-03] MEDS: guaiFENesin/CODEINE 10 ML UNIT-DOSE CUPS PO PRN ×3 (03:12→21:34)
[2022-05-03] MEDS: ALBUTEROL SO4 2.5/IPRATROPIUM 0.5 INH SOL 3 ML VIAL.NEB. NEB SCH ×4 (08:00→20:01)
[2022-05-03] MEDS: FLUTICASONE PROP 0.05% 16 GM NASAL SPRAY NS SCH ×2 (09:14→21:28)
[2022-05-03] MEDS: FLUTICASONE/UMECLIDIN/VILANTER(100-62.5-25 TRELEGY ELLIPTA) INAHLER IH SCH (09:14)
[2022-05-03] MEDS: CEFTRIAXONE 1 GM in DEXTROSE 5%-WATER - 50 ML IVPB SCH (09:16)
[2022-05-03] MEDS: VITAMIN B COMPLEX W/C COMBO TABLET (FP) PO SCH (09:17)
[2022-05-03] MEDS: PANTOPRAZOLE 40 MG TABLET PO SCH (09:17)
[2022-05-03] MEDS: carBAMazepine XR 200 MG TAB.ER.12H PO SCH ×2 (09:17→21:28)
[2022-05-03] MEDS: CHOLECALCIFEROL (VIT D3) 1,000 UNIT (25 MCG) TABLET PO SCH (09:18)
[2022-05-03] MEDS: HEPARIN NA (PORCINE) 5,000 UNITS/ML 1ML VIAL SQ SCH ×2 (09:22→21:28)
[2022-05-03 14:21] LABS: HEMOGLOBIN 12.6 G/dL (10.7-15.3); MCH 31.9 pg (25.7-33.7); MCHC 33.1 g/dl (32.0-36.0); MEAN CELL VOLUME 96.5 fl (80-96); MEAN PLT VOLUME 8.4 fl (7.5-11.1); PLATELET COUNT 343.1 10^3/uL (134-434); RBC 3.94 10^6/uL (3.60-5.2); RDW 14.8 % (11.6-15.6); WHITE BLOOD COUNT 10.5 10^3/uL (4.0-10.8)
[2022-05-03 14:27] LABS: ALBUMIN 3.6 g/dl (3.4-5.0); BILIRUBIN,TOTAL 0.2 mg/dl (0.2-1); CALCIUM 9.3 mg/dl (8.5-10); CREATININE 0.6 mg/dl (0.55-1.3); TOT PROT 5.8 g/dl (6.4-8.2)
[2022-05-03] MEDS: MONTELUKAST NA 10 MG TABLET PO SCH (21:29)
[2022-05-03] MEDS: ATORVASTATIN CA 10 MG TABLET (FP) PO SCH (21:29)
[2022-05-04] MEDS: methylPREDNISolone NA SUCC 40 MG/1 ML VIAL IVPUSH SCH ×2 (01:52→09:24)
[2022-05-04] MEDS: ALBUTEROL SO4 0.083% IH SOL 2.5 MG/3 ML VIAL.NEB. NEB PRN (05:13)
[2022-05-04] MEDS: guaiFENesin/CODEINE 10 ML UNIT-DOSE CUPS PO PRN (07:46)
[2022-05-04 09:15] VITALS: BP 125/61; PULSE 74; RESP 18; TEMP 98.6
[2022-05-04] MEDS: FLUTICASONE/UMECLIDIN/VILANTER(100-62.5-25 TRELEGY ELLIPTA) INAHLER IH SCH (09:22)
[2022-05-04] MEDS: FLUTICASONE PROP 0.05% 16 GM NASAL SPRAY NS SCH (09:22)
[2022-05-04] MEDS: HEPARIN NA (PORCINE) 5,000 UNITS/ML 1ML VIAL SQ SCH (09:23)
[2022-05-04] MEDS: ALBUTEROL SO4 2.5/IPRATROPIUM 0.5 INH SOL 3 ML VIAL.NEB. NEB SCH ×2 (09:23→12:14)
[2022-05-04] MEDS: VITAMIN B COMPLEX W/C COMBO TABLET (FP) PO SCH (09:23)
[2022-05-04] MEDS: carBAMazepine XR 200 MG TAB.ER.12H PO SCH (09:23)
[2022-05-04] MEDS: CEFTRIAXONE 1 GM in DEXTROSE 5%-WATER - 50 ML IVPB SCH (09:24)
[2022-05-04] MEDS: PANTOPRAZOLE 40 MG TABLET PO SCH (09:24)
[2022-05-04] MEDS: CHOLECALCIFEROL (VIT D3) 1,000 UNIT (25 MCG) TABLET PO SCH (09:37)
== END 2022-05-04 12:55 | disposition home or self-care (01) | DRG 202 ==
LOC: FER 11:43 → FM/S 15:47
DX: J45.901 Unspecified asthma with (acute) exacerbation (principal); J44.1 Chronic obstructive pulmonary disease with (acute) exacerbation; J84.9 Interstitial pulmonary disease, unspecified; E78.5 Hyperlipidemia, unspecified; G50.0 Trigeminal neuralgia; K21.9 Gastro-esophageal reflux disease without esophagitis; M81.0 Age-related osteoporosis without current pathological fracture; M85.80 Other specified disorders of bone density and structure, unspecified site; F41.9 Anxiety disorder, unspecified; R09.02 Hypoxemia
CPT/HCPCS: 0241U-QW; 36415; 71046-TC-FY; 80048; 80053; 81003; 83880; 84484; 85025; 85027; 85610; 87040; 87086; 87899; 93005; 94640; 99285-25; J1644

== ENCOUNTER 2023-08-12 03:42 | Emergency (ER) | payer OTHER, MEDICARE ==
[2023-08-12 03:58] VITALS: BP 184/100; PULSE 94; RESP 18; TEMP 98; BMI 26.5
[2023-08-12] MEDS ORDERED: CLINDAMYCIN HCL 150 MG CAPSULE (FP) ONE (03:58)
[2023-08-12] MEDS: CLINDAMYCIN HCL 150 MG CAPSULE (FP) PO ONE (04:00)
== END 2023-08-12 04:08 | disposition home or self-care (01) ==
LOC: FER 03:42
DX: K12.2 Cellulitis and abscess of mouth (principal)
CPT/HCPCS: 99283-25